=== PATIENT | female | born 1945 | race Caucasian/White ===

== ENCOUNTER 2023-10-09 15:49 | Emergency (ER) | payer MEDICARE, SELFPAY ==
[2023-10-09] VITALS (16 sets, daily range): BP systolic 162–194; BP diastolic 84–110; PULSE 66–83; RESP 18; TEMP 36.7; O2SAT 96–99; BMI 29.3
--- NOTE | 2023-10-09 16:47 | ED.GENADULT ---
HPI - General Adult General Date Seen: 10/09/23 Chief complaint: Syncope/Fainted Stated complaint: dizzy, fell Time Seen by Provider: 10/09/23 16:45 History of Present Illness HPI narrative: This is a 77-year-old female who is visiting from [place]. She has a history of hypertension, dyslipidemia, hypothyroidism, anxiety, and rectal cancer ( status post radiation ). She is on losartan, rosuvastatin, levothyroxine, paroxetine. History is limited because the patient is minimizing all of her symptoms, and very vague about describing them. Best history I can get is below. She flew from [place] to [place] last week to visit her boyfriend who lives in [place], [place]. She drove up here to [facility] and her granddaughter since it was only 5 hours car ride away. She notes that since last week, even before she left [place] she has been having spells where she gets dizzy. she really is minimizing these dizzy spells and does not think that there is serious. It does not sound like there was a clear pattern to the dizzy spells. At least some of the time, These tend to be triggered by position changes like when she goes from laying to standing. She can not really describe the dizzy spells other than she gets dizzy. they are not really spinning or vertigo. She did not want to cancel a trip even though she had the dizzy spell so she flew any way. She did have any trouble on the plane. No chest pain or shortness of breath. She has not developed any calf swelling since traveling. No other symptoms with the dizzy spells. They do not occur with defecation or micturition. Not associated with palpitations, chest pains, headaches, seizures, or other neurologic symptoms. She has otherwise been well. Normal appetite. Normal fluid intake. No fever chills. No cough. No trouble breathing. No nausea or vomiting. She does note that ever since she had radiation for rectal cancel she struggles with episodes of incontinence where she can not quite empty her bowels and then after she has a stool she will be incontinent a little while later. She has been on fiber for a while to try to remedy that problem but it really has not changed. No black or bloody stools or any change in her stool pattern lately. No abdominal pain. She had an episode of dizziness this morning after she woke up to get out of bed that was fairly mild and brief. She felt normally throughout the day since then. This afternoon she was shopping at [employer] with her granddaughter. It sounds like they had been walking around [employer] for while. She had to go to the bathroom to deal with an episode of stool and then was shopping around [employer] again. They were in [place] where she abruptly suddenly did started to feel unsteady and dizzy and she had to be lowered to the floor. She did not faint or black out. She did not really fall. She does not know what triggered the dizzy spell. It lasted briefly and then resolved. No other symptoms with the dizzy spell. No palpitations. No headache. No slurred speech, blurry vision, focal numbness or weakness. She also notes that she has have some mild discomfort in her left upper chest that she thinks is a pulled muscle. This is also been happening intermittently all week. No clear pattern to these episodes. Her current discomfort started this afternoon she was at [employer] , perhaps around the time she had the dizzy spell, but she is very unclear.. she does not have any rash or bruising there. The pain is not reproducible. and She has been experiencing episodes of near-syncope and episodes where she gets a funny feeling in her chest that occurs off and on for approximately past week. Related Data Allergies Allergy/AdvReac Type Severity Reaction Status Date / Time epinephrine AdvReac Intermediate Unknown Verified 10/09/23 15:54 [From Xylocaine with Epinephrine] lidocaine AdvReac Intermediate Unknown Verified 10/09/23 15:54 [From Xylocaine with Epinephrine] [facility] Social History Smoking Status: Unknown if ever smoked Exam Narrative: Exam Narrative: Constitutional: Appears well-developed and well-nourished. Alert. Conversant. Non toxic. HENT: Head: Atraumatic. Nose: Nose normal. Mouth/Throat: Oral mucosa is clear and moist. no trismus. Pharynx normal. Tonsils symmetric. No tonsillar enlargement, erythema, or exudate. Eyes: Conjunctivae normal. EOM normal. Pupils equal, round, and reactive to light. No scleral icterus. Neck: Normal range of motion. Neck supple. No tracheal deviation present. No thyromegaly. No JVD. Cardiovascular: Normal rate, regular rhythm. No gallop. No friction rub. No murmur heard. Symmetric radial And PTartery pulses Pulmonary/Chest: Effort normal. No stridor. No respiratory distress. No wheezes. No rales. No rhonchi . No tenderness. Abdominal: Soft. Bowel sounds normal. No distension. No mass. No tenderness. No rebound. No guarding. Musculoskeletal: RUE: Normal range of motion. No tenderness. No deformity LUE: Normal range of motion. No tenderness. No deformity RLE: Normal range of motion. trace edema noted at the top of her sock line. No tenderness. No deformity LLE: Normal range of motion. trace edema no to the top of her sock line. No tenderness. No deformity Neurological: Mental status normal. Attention normal. Alert and oriented x3. GCS 15. Memory normal. Speech fluent. Cognition normal. Cranial Nerves intact II-XII except I did not formally test gag or visual acuity. EOMI. Palate elevates symmetrically and tongue protrudes in the midline. Strength: 5/5 trapezius on the right and left 5/5 deltoid on the right and left 5/5 biceps on the right and left 5/5 triceps on the right and left 5/5 chief radiologic technologist on the right and left 5/5 thumb opposition on the right and left 5/5 finger abduction on the right and left 5/5 hip flexors (L3) on the right and left 5/5 quadriceps (L4) on the right and left 5/5 tibialis anterior on the right and left 5/5 EHL (L5) on the right and left 5/5 gastrocnemius (S1) on the right and left 5/5 hamstring on the right and left Sensation intact to light touch in both upper extremities (C4-T1) Sensation intact to light touch in Both lower extremities (L4-S1). Finger to nose and coordination normal. Gait normal at the bedside. Nurses report that she was stable walking the hallway to the bathroom but that she did experience a near stumble once. Skin: Skin is warm and dry. No rash noted. No pallor. Normal capillary refill. Psychiatric: she is polite and pleasant but she Is minimizing her symptoms. At times she seems almost confused , but I think that almost is more a manifestation that she is in different to her symptoms and does not think that they are important her serious. she is able to recall all of her regular prescription medications and her previous medical diagnoses. She is able to describe it in detail that she flew from [place] to the [facility] to visit her boyfriend they drove from there to visit her granddaughter. Const: Vital Signs, click to edit/add: Vital Signs - 24 hr 10/09/23 15:56 10/09/23 16:45 10/09/23 17:00 Temperature 98.1 F Pulse Rate 75 72 Pulse Rate [Pulse Oximeter] 80 Pulse Rate [orthos tatic lying] Pulse Rate [orthos tatic sitting] Pulse Rate [orthos tatic standing] Respiratory Rate 18 Blood Pressure Blood Pressure [Ri ght Upper Arm] 174/84 H Blood Pressure [or thostatic lying] Blood Pressure [or thostatic sitting] Blood Pressure [or thostatic standing ] Pulse Oximetry 97 97 98 Oxygen Delivery Me od Room Air 10/09/23 17:03 10/09/23 17:04 10/09/23 17:15 Temperature Pulse Rate 71 71 71 Pulse Rate [Pulse Oximeter] Pulse Rate [orthos tatic lying] Pulse Rate [orthos tatic sitting] Pulse Rate [orthos tatic standing] Respiratory Rate Blood Pressure 194/88 H Blood Pressure [Ri ght Upper Arm] Blood Pressure [or thostatic lying] Blood Pressure [or thostatic sitting] Blood Pressure [or thostatic standing ] Pulse Oximetry 98 99 98 Oxygen Delivery Me thod 10/09/23 17:17 10/09/23 17:18 10/09/23 17:19 Temperature Pulse Rate 78 81 Pulse Rate [Pulse Oximeter] Pulse Rate [orthos tatic lying] 70 Pulse Rate [orthos tatic sitting] 70 Pulse Rate [orthos tatic standing] 78 Respiratory Rate Blood Pressure 170/95 H 162/94 H Blood Pressure [Ri ght Upper Arm] Blood Pressure [or thostatic lying] 170/95 H Blood Pressure [or thostatic sitting] 162/94 H Blood Pressure [or thostatic standing ] 169/110 H Pulse Oximetry 98 99 Oxygen Delivery Me thod 10/09/23 17:20 10/09/23 17:30 10/09/23 17:45 Temperature Pulse Rate 77 66 Pulse Rate [Pulse Oximeter] Pulse Rate [orthos tatic lying] Pulse Rate [orthos tatic sitting] Pulse Rate [orthos tatic standing] Respiratory Rate Blood Pressure 169/110 H Blood Pressure [Ri ght Upper Arm] Blood Pressure [or thostatic lying] Blood Pressure [or thostatic sitting] Blood Pressure [or thostatic standing ] Pulse Oximetry 97 98 Oxygen Delivery Me thod 10/09/23 18:00 10/09/23 18:15 10/09/23 18:30 Temperature Pulse Rate 73 74 77 Pulse Rate [Pulse Oximeter] Pulse Rate [orthos tatic lying] Pulse Rate [orthos tatic sitting] Pulse Rate [orthos tatic standing] Respiratory Rate Blood Pressure Blood Pressure [Ri ght Upper Arm] Blood Pressure [or thostatic lying] Blood Pressure [or thostatic sitting] Blood Pressure [or thostatic standing ] Pulse Oximetry 98 97 96 Oxygen Delivery Wi thod 10/09/23 18:45 Temperature Pulse Rate 83 Pulse Rate [Pulse Oximeter] Pulse Rate [orthos tatic lying] Pulse Rate [orthos tatic sitting] Pulse Rate [orthos tatic standing] Respiratory Rate Blood Pressure Blood Pressure [Ri ght Upper Arm] Blood Pressure [or thostatic lying] Blood Pressure [or thostatic sitting] Blood Pressure [or thostatic standing ] Pulse Oximetry 96 Oxygen Delivery Me thod Course Vital Signs Vital signs: Initial Vital Signs Temperature 98.1 F 10/09/23 15:56 Temperature Source Temporal Artery Scan 10/09/23 15:56 Pulse Rate 80 10/09/23 15:56 Respiratory Rate 18 10/09/23 15:56 Blood Pressure 174/84 H 10/09/23 15:56 Blood Pressure Mean 114 H 10/09/23 15:56 Pulse Oximetry 97 10/09/23 15:56 Oxygen Delivery Method Room Air 10/09/23 15:56 Vital Signs Temperature 98.1 F 10/09/23 15:56 Pulse Rate 80 10/09/23 15:56 Respiratory Rate 18 10/09/23 15:56 Blood Pressure 174/84 H 10/09/23 15:56 Pulse Oximetry 97 10/09/23 15:56 Oxygen Delivery Method Room Air 10/09/23 15:56 Temperature 98.1 F 10/09/23 15:56 Pulse Rate 83 10/09/23 18:45 Respiratory Rate 18 10/09/23 15:56 Blood Pressure 169/110 H 10/09/23 17:20 Pulse Oximetry 96 10/09/23 18:45 Oxygen Delivery Method Room Air 10/09/23 15:56 Medications Administered Medications: Discontinued Medications Generic Name Dose Route Start Last Admin Trade Name Sergei PRN Reason Stop Dose Admin Sodium Chloride 1,000 mls @ 1,000 mls/hr 10/09/23 17:30 10/09/23 18:42 0.9 % Sodium Chloride 1000 Ml IV 10/09/23 18:29 Infused .Q1H RUBEN Infusion Medical Decision Making [facility] Narrative Medical decision making narrative: This patient presents for evaluation of a intermittent dizzy spells occurring all week with a more significant dizzy spell and near syncopal event that occurred this afternoon while she was shopping, walking down the aisle at [employer]. She also is having mild discomfort in her left upper chest that she thinks is probably a pulled muscle that is been occurring off and on all week.. A broad differential was considered. History provided suggests a benign cause of syncope. No murmurs . Initial ECG shows normal sinus rhythm and no dysrhythmogenic abnormality such as WPW, prolonged QT, Brugada syndrome, and no ischemia. With her chest pain, consider possible ACS. EKG is nonspecific but does not show any definite ischemia. Initial bedside troponin is undetectable. Discussed possible ACS with the patient. She does not think her chest pain represents heart attack. She would agree to stay for a 2 hour delta troponin but does not want to stay any longer than that. Repeat delta troponin is[] No headache or other neurologic symptoms to suggest subarachnoid , stroke . No reported seizure-like activity or postictal phase. monitoring tech while the patient here in the ER showed no dysrhythmia or ectopy. A broad differential diagnosis was considered including SVT, Atrial fibrillation, ventricular arrhythmia, thyroid disease, acute electrolyte abnormality, drugs/medications, medication side effect, anemia, heart disease, PE, among others. The workup and exam here in ED shows low risk for dangerous cause of the patient's syncope, and no risks factors to warrant admission. She is feeling better after IV fluids administered here in the ER. Nonetheless with her age, medical history, chest pain associated with dizzy spells, I am concerned about this patient. Would recommend hospitalization for cardiac monitoring and workup overnight. However she is declining. She does have medical decision-making capacity. Therefore will discharge home, as per her with sutures. She understands the diagnoses in question in the risk of going home.. Recommend follow up with her regular doctor when she gets back to [place] or return to the ER immediately with any recurrent dizzy spells, or other symptoms.. Questions answered and return precautions given Lab Data Labs: Lab Results 10/09/23 10/09/23 10/09/23 Range/Units 17:00 18:59 19:00 WBC 6.29 (4.50-11.00) K/uL RBC 4.92 (4.00-5.20) m/uL Hgb 13.0 (12.0-16.0) gm/dL Hct 42.0 (33.0-51.0) % MCV 85 (80-100) fL MCH 26 (26-34) pg MCHC 31 L (32-36) gm/dL RDW Coeff of Kathy 15.4 (11.5-15.5) % Plt Count 170 (140-440) K/uL Neut % (Auto) 71.0 (42.0-72.0) % Lymph % (Auto) 18.1 L (20-44) % [place] % (Auto) 7.3 (0.0-11.0) % Eos % (Auto) 3.2 (0.0-7.0) % Baso % (Auto) 0.2 (0.0-3.0) % Neut # (Auto) 4.47 (1.7-7.0) K/uL Lymph # (Auto) 1.10 (0.90-2.90) K/uL [place] # (Auto) 0.50 (0.00-0.90) K/UL Eos # (Auto) 0.20 (0.00-0.50) K/uL Baso # (Auto) 0.01 (0.00-0.30) K/uL Abs Immat Gran (auto) 0.01 (0.00-0.30) K/uL Imm/Tot Granulo (auto) 0.2 % Sodium 139 (135-149) mmol/L Potassium 3.9 (3.6-5.1) mmol/L Chloride 105 (96-114) mmol/L Carbon Dioxide 30 (20-32) mmol/L Anion Gap 4 L (7-15) mEq/L BUN 24 (7-30) mg/dL Creatinine 0.9 (0.5-1.5) mg/dL Estimated Creat Clear 36.67 Estimated GFR 65 ml/min Glucose 94 (60-115) mg/dL Calcium 10.5 (8.4-10.6) mg/dL Troponin I < 0.01 L (0.01-0.04) ng/mL TSH 2.780 (0.270-4.200) uIU/mL Urine Color Light yellow (Yellow) Urine Appearance Clear (Clear) Urine pH 6.0 (5.0-8.5) Ur Specific [place] <= 1.005 (1.000-1.030) Urine Protein Negative (Negative) Urine Glucose (UA) Negative (Negative) Urine Ketones Negative (Negative) Urine Blood Negative (Negative) Urine Nitrite Negative (Negative) Urine Bilirubin Negative (Negative) Urine Urobilinogen 0.2 (0.2-1.0) Ur Leukocyte Esterase Negative (Negative) Urine RBC 0-2 (0-2) Urine WBC 0-2 (0-5) Ur Squamous Epith Cells None (None-Few) Urine Bacteria None (None) Ethyl Alcohol < 0.01 L (0.01-0.03) % POC Troponin I 0.01 (0.01-0.04) ng/ml ECG Data Attestation: I personally reviewed and interpreted this ECG as follows: Interpretation: Normal sinus rhythm . Rate: 73 [place]: 160 QRS axis: normal axis. No pathologic Q-waves. No delta waves. ST segment/T wave: Nonspecific T-wave flattening in 1, 2, aVL, 3, AVF, V4, V3, V5, V6. No ST segment elevation or depression. QTc: Four hundred thirty-six no old EKGs available for comparison. Discharge Plan Discharge Clinical Impression: Dizziness, Chest pain Patient Disposition: Home, Self-Care Condition: Stable Instructions: Chest Pain (DC), Dizziness (ED) Additional Instructions: As we discussed, please come back to the ER right away if you have any more episodes of dizziness, any fainting spells, or any worsening chest pain, trouble breathing, palpitations, or any problems. Even if you are doing well, please recheck with your regular doctor within the next 7-10 days.. Follow Up/Referrals: Provider,Not a Local [Primary Care Provider] - Stand Alone Forms: [employer] Info Instructions
[2023-10-09 17:10] LABS: Basophils Absolute Auto 0.01 K/uL (0.00-0.30); Basophils Percent Auto 0.2 % (0.0-3.0); Eosinophils Percent Auto 3.2 % (0.0-7.0); Immature Granulocytes Abs Auto 0.01 K/uL (0.00-0.30); Immature Granulocytes Pct Auto 0.2 %; Lymphocytes Percent Auto 18.1 % (20-44); Mean Corpuscular HGB Conc 31 gm/dL (32-36); Mean Corpuscular Hemoglobin 26 pg (26-34); Mean Corpuscular Volume 85 fL (80-100); Monocytes Percent Auto 7.3 % (0.0-11.0); Neutrophils Absolute Auto 4.47 K/uL (1.7-7.0); Platelet Count* 170 K/uL (140-440); RDW Coefficient of Variation % 15.4 % (11.5-15.5); Red Blood Count 4.92 m/uL (4.00-5.20); White Blood Count* 6.29 K/uL (4.50-11.00)
[2023-10-09 17:22] LABS: Chloride* 105 mmol/L (96-114); Potassium* 3.9 mmol/L (3.6-5.1); Sodium* 139 mmol/L (135-149)
[2023-10-09 17:24] LABS: Slide Review Reflex No
[2023-10-09 17:25] LABS: Anion Gap 4 mEq/L (7-15); Blood Urea Nitrogen* 24 mg/dL (7-30); Carbon Dioxide* 30 mmol/L (20-32); Creatinine* 0.9 mg/dL (0.5-1.5); Est. Creatinine Clearance* 36.67; Estimated Glomerular Filt Rate 65 ml/min
[2023-10-09 17:26] LABS: Calcium* 10.5 mg/dL (8.4-10.6); Glucose* 94 mg/dL (60-115)
[2023-10-09 17:28] LABS: Ethanol* < 0.01 % (0.01-0.03)
[2023-10-09] MEDS: 0.9 % SODIUM CHLORIDE 1000 ml 1,000 ML IV (17:30)
[2023-10-09 17:38] LABS: Troponin I* < 0.01 ng/mL (0.01-0.04)
[2023-10-09 19:04] LABS: Appearance Urine Clear (Clear); Bilirubin Urine Negative (Negative); Blood Urine Negative (Negative); Color Urine Light yellow (Yellow); Glucose Urine Negative (Negative); Ketones Urine Negative (Negative); Leukocyte Esterase Urine Negative (Negative); Nitrite Urine Negative (Negative); Protein Urine Negative (Negative); Specific Gravity Urine <= 1.005 (1.000-1.030); Urobilinogen Urine 0.2 (0.2-1.0)
[2023-10-09 19:14] LABS: RBC Urine 0-2 (0-2); WBC Urine 0-2 (0-5)
[2023-10-09 19:23] LABS: Troponin, Point-of-Care* 0.01 ng/ml (0.01-0.04)
== END 2023-10-09 19:40 | disposition home or self-care (01) ==
PROVIDERS: Emergency Provider Emergency Medicine
DX: R42 Dizziness and giddiness (principal); R07.9 Chest pain, unspecified
CPT/HCPCS: 36415; 80048; 81001; 82077; 84443; 84484; 85025; 99284; J7030